=== PATIENT | female | born 1995 | race Two or more races ===

== ENCOUNTER 2021-04-06 09:14 | Emergency (ER) | payer OTHER ==
[2021-04-06 09:21] VITALS: BP 139/83; PULSE 92; TEMP 98.4
[2021-04-06 10:31] LABS: URINE APPEARANCE Clear; URINE BILIRUBIN Negative (NEGATIVE); URINE COLOR Yellow; URINE GLUCOSE (UA) Negative (NEGATIVE); URINE KETONE Trace (NEGATIVE); URINE LEUK ESTERASE Trace (NEGATIVE); URINE NITRITE Negative (NEGATIVE); URINE PROTEIN Negative (NEGATIVE); URINE UROBILINOGEN 0.2 mg/dL (0.2-1.0)
[2021-04-06 10:57] LABS: EPI CELLS MODERATE /HPF
== END 2021-04-06 12:14 | disposition home or self-care (01) ==
LOC: JER 09:14
DX: N83.201 Unspecified ovarian cyst, right side (principal)
CPT/HCPCS: 36415; 76830-TC; 81003; 84703; 87086; 87491; 87591; 99284-25

== ENCOUNTER 2023-10-29 11:41 | Emergency (ER) | payer OTHER ==
[2023-10-29 12:01] VITALS: BP 123/82; PULSE 96; RESP 16; TEMP 98.9; BMI 28.6
[2023-10-29 13:56] LABS: PH,URINE 6.5 (5.0-8.0); URINE APPEARANCE CLEAR; URINE BILIRUBIN NEGATIVE (NEGATIVE); URINE COLOR YELLOW; URINE GLUCOSE (UA) NEGATIVE (NEGATIVE); URINE KETONE NEGATIVE (NEGATIVE); URINE LEUK ESTERASE NEGATIVE (NEGATIVE); URINE NITRITE NEGATIVE (NEGATIVE); URINE PROTEIN NEGATIVE (NEGATIVE); URINE UROBILINOGEN 0.2 mg/dL (0.2-1.0)
[2023-10-29 14:01] LABS: HCG,QUALITATIVE URINE Positive
[2023-10-29 14:05] LABS: INR 1.03 (0.83-1.09); PROTHROMBIN TIME (PATIENT) 11.6 SEC (9.7-13.0)
[2023-10-29 14:07] LABS: BASO % 0.3 % (0-2.0); EOS % 1.4 % (0-4.5); HEMATOCRIT 31.9 % (32.4-45.2); HEMOGLOBIN 10.4 GM/dL (10.7-15.3); LYMPH % 34.3 % (8-40); MCHC 32.6 g/dl (32.0-36.0); MEAN CELL VOLUME 82.8 fl (80-96); MEAN PLT VOLUME 7.9 fl (7.5-11.1); MONO % 5.7 % (3.8-10.2); NEUT % 58.3 % (42.8-82.8); PLATELET COUNT 429 10^3/uL (134-434); RBC 3.85 M/mm3 (3.60-5.2); WHITE BLOOD COUNT 8.8 K/mm3 (4.0-10.0)
[2023-10-29 14:08] LABS: ACTIVATED PTT 31.4 SECONDS (25.2-36.5)
[2023-10-29 14:35] LABS: POTASSIUM 4.7 mmol/L (3.5-5.1)
[2023-10-29 14:38] LABS: CALCIUM 9.2 mg/dL (8.5-10.1)
[2023-10-29 14:39] LABS: ALBUMIN 3.4 g/dl (3.4-5.0)
[2023-10-29 14:42] LABS: CREATININE 0.7 mg/dL (0.55-1.3)
[2023-10-29 14:43] LABS: BILIRUBIN,TOTAL 0.2 mg/dL (0.2-1); TOT PROT 6.9 g/dl (6.4-8.2)
[2023-10-29] MEDS ORDERED: ACETAMINOPHEN 500 MG TABLET (FP) ONE (15:15)
[2023-10-29] MEDS: ACETAMINOPHEN 500 MG TABLET (FP) PO ONE (15:21)
== END 2023-10-29 16:42 | disposition home or self-care (01) ==
LOC: JER 11:41
DX: O20.9 Hemorrhage in early pregnancy, unspecified (principal); Z3A.01 Less than 8 weeks gestation of pregnancy
CPT/HCPCS: 36415; 76817-TC; 80053; 81003; 84702; 84703; 85025; 85610; 85730; 86850; 86900; 86901; 99284-25